=== PATIENT | male | born 1990 | race African-American/Black ===

== ENCOUNTER 2020-11-01 23:16 | Emergency (ER) | payer OTHER ==
[~2020-11-01] VITALS: Ht 170.2 cm; Wt 74.8 kg
[2020-11-01] MEDS ORDERED: DOXYCYCLINE 10100 M2 PO (23:37)
[2020-11-01] MEDS ORDERED: MACROBID 100 M100 MG PO (23:38)
[2020-11-02 02:41] LABS: URINE BILIRUBIN NEGATIVE (Negative); URINE BLOOD NEGATIVE (Negative); URINE CLARITY CLEAR; URINE COLOR ORANGE; URINE GLUCOSE-RANDOM* NEGATIVE (Negative); URINE KETONES 1+ (Negative); URINE LEUKOCYTES-REFLEX NEGATIVE (Negative); URINE NITRITE-REFLEX NEGATIVE (Negative); URINE PROTEIN (DIPSTICK) NEGATIVE (Negative); URINE UROBILINOGEN 0.2 E.U./dl (0.2-1.0)
[2020-11-02] MEDS ORDERED: LEVOFLOXACIN500 MG PO (03:05)
[2020-11-02] MEDS ORDERED: MOBIC15 MG PO (03:05)
[2020-11-02 03:06] VITALS: BP 122/90
== END 2020-11-02 03:13 | disposition left against medical advice (07) ==
LOC: ER 23:16
PROVIDERS: Emergency Medicine
DX: N45.1 Epididymitis (principal); G43.909 Migraine, unspecified, not intractable, without status migrainosus; Z88.1 Allergy status to other antibiotic agents